=== PATIENT | female | born 1965 | race Hispanic/Latino ===

== ENCOUNTER → 2016-08-27 | Outpatient (CLI) | payer BC | LOC: GMAJ 14:29 | PROVIDERS: ATTEND Family Medicine | DX: E03.9 Hypothyroidism, unspecified (principal) ==

== ENCOUNTER → 2016-09-11 | Outpatient (CLI) | payer BC | END | disposition home or self-care (01) | LOC: GMA 13:47 | PROVIDERS: ATTEND Nurse Practitioner Acute Care | DX: E03.9 Hypothyroidism, unspecified (principal) ==

== ENCOUNTER → 2016-11-03 | Outpatient (CLI) | payer BC | END | disposition home or self-care (01) | LOC: GMAJ 16:28 | PROVIDERS: ATTEND Family Medicine | DX: E53.8 Deficiency of other specified B group vitamins (principal) ==

== ENCOUNTER → 2016-12-23 | Outpatient (CLI) | payer BC | END | disposition home or self-care (01) | LOC: GMA 16:53 | PROVIDERS: ATTEND Physician Assistant | DX: R42 Dizziness and giddiness (principal) ==

== ENCOUNTER → 2017-05-18 | Outpatient (CLI) | payer BC ==
--- NOTE | 2017-05-18 14:49 | US ---
ABDOMINAL ULTRASOUND HISTORY:ABD PAIN COMPARISON: None TECHNIQUE: Grayscale and color Doppler sonographic evaluations of abdominal visceral organs FINDINGS: Liver demonstrates unremarkable echotexture. No focal mass nor abnormal intrahepatic biliary distention. Major portal veins are patent with unremarkable directions of flow. Gallbladder is unremarkable in appearance with normal wall thickness. No shadowing stones nor pericholecystic fluid is identified. No sonographic To's sign. Common bile duct measures 4.7 mm in diameter. Spleen measures 9.3 cm in maximal span with unremarkable echotexture. Pancreas is unremarkable in appearance. Right kidney measures 9.7 cm in maximal span, and left kidney measures 9.4 cm in maximal span. No shadowing stone, hydronephrosis nor cortical lesion in either kidney. Abdominal aorta is patent with maximal diameter of 2.0 cm. IVC is patent. IMPRESSION: 1. No cholelithiasis nor sonographic suggestion of cholecystitis. 2. No abnormal intrahepatic and extrahepatic biliary distention. 3. No abnormality in either kidney. 4. No aneurysmal dilatation of abdominal aorta Electronically signed by: Trace Hester MD 05/18/2017 2:48 PM TRANSLATOR
--- NOTE | 2017-05-18 14:51 | US ---
PELVIC ULTRASOUND HISTORY:ABD PAIN COMPARISON:None TECHNIQUE: Grayscale and color Doppler sonographic evaluation of intrapelvic structures. Transvaginal imaging approach was utilized to better visualize intrapelvic content. FINDINGS: Uterus is surgically absent. No concerning mass nor abnormal infarct in the pelvic floor. Right ovary measures 0.9 x 1.0 x 0.7 cm, and left ovary measures 1.2 x 1.3 x 1.1 cm. Unremarkable vascular flow detected in both ovaries. No concerning mass detected in pelvis. No free fluid in pelvic floor. IMPRESSION: Unremarkable pelvic evaluation. Electronically signed by: Trace Hester MD 05/18/2017 2:50 PM MANAGER [employer]
== END ==
LOC: US 11:46
PROVIDERS: ATTEND Nurse Practitioner Family
DX: R10.84 Generalized abdominal pain (principal)

== ENCOUNTER → 2017-05-28 | Outpatient (CLI) | payer BC ==
--- NOTE | 2017-05-28 13:56 | US ---
EXAM DESCRIPTION: Soft Tissue,Abdomen CLINICAL HISTORY: Soft tissue mass of the right lower back COMPARISON: None Available. TECHNIQUE: Superficial lesion sonogram of the right lower back FINDINGS: Fatty tissue is seen in the region of the palpable area of concern. The possibility of a lipoma must be considered. One image suggests an elongate lipoma measuring 3.6 x 0.7 cm. Other images are entirely normal. No underlying muscular abnormality. IMPRESSION: Question right lower back lipoma. Electronically signed by: Rob Horton MD 05/28/2017 1:55 PM CDT
== END ==
LOC: US 09:43
PROVIDERS: ATTEND Nurse Practitioner Family
DX: R22.2 Localized swelling, mass and lump, trunk (principal)

== ENCOUNTER → 2017-06-09 | Outpatient (CLI) | payer BC | LOC: GMAJ 14:45 | PROVIDERS: ATTEND Family Medicine | DX: E03.9 Hypothyroidism, unspecified (principal) ==

== ENCOUNTER → 2017-08-02 | Outpatient (CLI) | payer BC | LOC: GMAJ 12:37 | PROVIDERS: ATTEND Family Medicine | DX: M25.50 Pain in unspecified joint (principal) ==

== ENCOUNTER → 2017-11-05 | Outpatient (CLI) | payer BC ==
--- NOTE | 2017-11-05 09:04 | CT ---
EXAM DESCRIPTION: Abdoment/Pelvis w/o Contrast CLINICAL HISTORY: 52 years Female, MICROSCOPIC HEMATURIA. R31.21 COMPARISON: CT abdomen and pelvis with and without contrast dated 03/19/2015. TECHNIQUE: Contiguous 3 mm axial images were obtained from the lung bases to the level of the proximal femora without the administration of intravenous or oral contrast. Sagittal and coronal reconstructions were reviewed. FINDINGS: Limited evaluation of the solid organs due to the lack of intravenous contrast. THORAX: Pectus excavatum is noted. The imaged lower thorax otherwise appears normal. LIVER: The liver demonstrates normal size and density with no intrahepatic biliary ductal dilatation. GALLBLADDER: Grossly unremarkable. PANCREAS: Appears normal with no cystic or solid lesions. SPLEEN: Normal ADRENAL GLANDS: Normal with no nodules or masses. KIDNEYS: Both kidneys are symmetric in size and contour with no hydronephrosis or nephrolithiasis or perinephric fluid collections. The visualized ureters appear grossly unremarkable. STOMACH: The stomach is mildly distended with no gross abnormality. SMALL BOWEL: The small bowel loops demonstrate variable degrees of distention with no abnormal dilatation or other signs to suggest bowel obstruction. LARGE BOWEL: Numerous diverticuli are noted throughout the descending and sigmoid colon with no evidence of acute diverticulitis. Moderate to large amount of fecal material is noted consistent with constipation. The appendix is well-visualized and appears normal No evidence of free intraperitoneal air or fluid. RETROPERITONEUM: The abdominal aorta is nonaneurysmal with no significant atherosclerosis. The inferior vena cava is normal in size and caliber. No abnormally enlarged retroperitoneal lymph nodes are identified. URINARY BLADDER:The urinary bladder is well-distended with no gross abnormality. The uterus is surgically absent. Bilateral ovaries appear normal. ADDITIONAL FINDINGS: None. BONES: Mild degenerative changes are identified in the visualized bones.No evidence of osteophytic or osteoblastic lesions. IMPRESSION: Colonic diverticulosis. Constipation. No evidence of bilateral renal/ureteric/bladder calculi. This exam was performed according to our departmental dose-optimization program, which includes automated exposure control, adjustment of the mA and/or kV according to patient size and/or use of iterative reconstruction technique. Electronically signed by: Catherine Rosenbaum MD 11/05/2017 9:02 AM CDT
== END ==
LOC: CT 08:00
PROVIDERS: ATTEND Family Medicine
DX: R31.21 Asymptomatic microscopic hematuria (principal); K57.30 Diverticulosis of large intestine without perforation or abscess without bleeding; K59.00 Constipation, unspecified

== ENCOUNTER → 2017-12-23 | Outpatient (CLI) | payer BC | LOC: GMAJ 11:46 | PROVIDERS: ATTEND Family Medicine | DX: Z79.899 Other long term (current) drug therapy (principal) ==

== ENCOUNTER → 2018-09-06 | Outpatient (CLI) | payer BC | LOC: GMAH 10:21 | PROVIDERS: ATTEND Nurse Practitioner Family | DX: L65.9 Nonscarring hair loss, unspecified (principal); R53.83 Other fatigue; R30.0 Dysuria ==

== ENCOUNTER → 2019-08-24 | Outpatient (CLI) | payer BC ==
--- NOTE | 2019-08-24 13:07 | RAD ---
Right shoulder 4 views INDICATION: Shoulder pain IMPRESSION: No fracture or dislocation. Minimal AC joint osteophyte formation. No end-stage arthrosis. No acute separation of the AC joint. Electronically signed by: Emigdio Aguilar MD 08/24/2019 1:05 PM CDT
== END ==
LOC: RAD 09:03
PROVIDERS: ATTEND Orthopaedic Surgery
DX: M25.511 Pain in right shoulder (principal)

== ENCOUNTER → 2020-02-02 | Outpatient (CLI) | payer BC | LOC: GMAJ 10:22 | PROVIDERS: ATTEND Family Medicine | DX: E03.8 Other specified hypothyroidism (principal) ==